=== PATIENT | female | born 1940 | race Asian ===

== ENCOUNTER 2021-07-15 14:10 | Outpatient (CLI) | payer MEDICARE, OTHER | END 2021-07-15 23:59 | disposition home or self-care (01) | LOC: WOU 14:10 | PROVIDERS: ATTEND Podiatrist Foot & Ankle Surgery | DX: E11.610 Type 2 diabetes mellitus with diabetic neuropathic arthropathy (principal); M19.172 Post-traumatic osteoarthritis, left ankle and foot; M21.42 Flat foot [pes planus] (acquired), left foot; L84 Corns and callosities; B35.1 Tinea unguium; R60.0 Localized edema; M79.672 Pain in left foot; Z79.84 Long term (current) use of oral hypoglycemic drugs; Z79.01 Long term (current) use of anticoagulants | CPT/HCPCS: G0463 ==